=== PATIENT | female | born 1990 | race African-American/Black ===

== ENCOUNTER 2017-06-25 01:20 | Emergency (ER) | payer OTHER ==
[2017-06-25] MEDS: IV NORMAL SALINE 1000ML BAG 1,000 ML IV ×2 (02:32)
[2017-06-25 02:33] LABS: ADD MAN DIFF? NO
[2017-06-25] MEDS: FAMOTIDINE 20 MG/2 ML VIAL IVP ×2 (02:33)
[2017-06-25 02:36] LABS: BASO # 0.1 x10^3/uL (0.0-0.2); BASO % 1 % (0-3); EOS # 0.1 x10^3/uL (0.0-0.7); EOS % 1 % (0-3); HEMATOCRIT 31.1 % (36.0-47.0); HEMOGLOBIN 10.5 g/dL (12.0-15.5); LYMPH # 1.9 x10^3/uL (1.0-4.8); LYMPH % 19 % (24-48); MEAN CORPUSCULAR HEMOGLOBIN 31 pg (25-35); MEAN CORPUSCULAR HGB CONC 34 g/dL (31-37); MEAN CORPUSCULAR VOLUME 93 fL (79-100); MONO # 0.7 x10^3/uL (0.0-1.1); MONO % 7 % (0-9); NEUT # 7.2 x10^3uL (1.8-7.7); NEUT % 73 % (31-73); PLATELET COUNT 262 x10^3/uL (140-400); RED BLOOD COUNT 3.35 x10^6/uL (3.50-5.40); RED CELL DISTRIBUTION WIDTH 12.6 % (11.5-14.5); WHITE BLOOD COUNT 9.9 x10^3/uL (4.0-11.0)
[2017-06-25 02:53] LABS: ALBUMIN 2.9 g/dL (3.4-5.0); ALBUMIN/GLOBULIN RATIO 0.7 (1.0-1.7); ALK PHOS 48 U/L (46-116); ALT (SGPT) 153 U/L (14-59); ANION GAP 9 (6-14); AST (SGOT) 63 U/L (15-37); BLOOD UREA NITROGEN 8 mg/dL (7-20); BUN/CREATININE RATIO 13 (6-20); CALCIUM 8.8 mg/dL (8.5-10.1); CARBON DIOXIDE 25 mmol/L (21-32); CHLORIDE 102 mmol/L (98-107); CREATININE 0.6 mg/dL (0.6-1.0); GFR 145.1; GLUCOSE 98 mg/dL (70-99); LIPASE 91 U/L (73-393); SODIUM 136 mmol/L (136-145); TOTAL BILIRUBIN 0.4 mg/dL (0.2-1.0); TOTAL PROTEIN 6.9 g/dL (6.4-8.2)
[2017-06-25 02:56] LABS: POTASSIUM 2.9 mmol/L (3.5-5.1)
[2017-06-25] MEDS: POTASSIUM CHLORIDE 20 MEQ TABLET.ER. PO ×2 (03:18)
== END 2017-06-25 03:50 | disposition home or self-care (01) ==
LOC: ER 01:20
DX: O21.9 Vomiting of pregnancy, unspecified (principal); O26.892 Other specified pregnancy related conditions, second trimester; E87.6 Hypokalemia; R19.7 Diarrhea, unspecified; Z3A.17 17 weeks gestation of pregnancy; Z88.0 Allergy status to penicillin
CPT/HCPCS: 36415; 80053; 83690; 85025; 96374; 99284-25; J7030; S0028